=== PATIENT | male | born 1980 | race Caucasian/White ===

== ENCOUNTER 2017-09-11 14:00 | Emergency (ER) | payer OTHER ==
[~2017-09-11] VITALS: Ht 160 cm; Wt 63.5 kg
[2017-09-11 14:04] VITALS: BP 144/90
--- NOTE | 2017-09-11 14:18 | NUR ---
CALLED ELECT[employer]OR MECHANIC JULIÁN, SHE WILL SEE THE PATIENT.
--- NOTE | 2017-09-11 14:26 | NUR ---
JULIÁN ICHTHYOLOGIST AT TALKING TO THE PATIENT.
--- NOTE | 2017-09-11 14:30 | NUR ---
VINH TOKEN PROVIDED TO PATIENT.
--- NOTE | 2017-09-11 14:49 | NUR ---
GABRIEL received a call from ED stating Dr. Villa would like for pt. to be seen by SW to offer dental resources. GABRIEL met with pt. bedside. Pt. is alert and oriented x 3. Pt. appears disheveled and states [facility] informed pt[facility] there is no criteria to have him transferred to the [facility]. GABRIEL offered pt. dental referrals, however pt[facility] declined [facility] However, GABRIEL offered pt. bus tokens to go to the [place] since that is where he would like to go. Pt. agreed. GABRIEL gave [place] in ED bus tokens to give to the pt. Addendum: 09/11/17 at 1454 by JULIÁN RIOS Correction: Transferred to the [place].
== END 2017-09-11 14:42 | disposition home or self-care (01) ==
LOC: ER 14:05
DX: K02.9 Dental caries, unspecified (principal)
CPT/HCPCS: A4606; Z7610